=== PATIENT | female | born 1980 | race Caucasian/White ===

== ENCOUNTER 2016-11-28 10:33 | Emergency (ER) | payer OTHER, MEDICAID ==
[~2016-11-28] VITALS: Ht 154.9 cm; Wt 82.6 kg
[~2016-11-28 10:33] MED LIST: AC500T PO; ACDPT; ALPR1T PO; CEPH500C PO; CPR500T PO; DOXY100C2 PO; ENLP5T PO; FERR325C PO; HCPR10FM; HYDR1CAP2 PO; HYDR1TAB PO; LEVO500T69 PO; METR500T PO; NAPR250T34 PO; OMEP20TA2 PO; OXYC-12 PO; SULF1TAB38 PO; TRINESSA PO
--- OUTSIDE RECORDS SUMMARY | 2016-11-28 10:39 | XMS REPORT ---
Author Author Iris Chowdhury Organization [facility] Address [address] [place], [place] [address] Care Team Providers Care Sales Contract Administrator Name Role Phone Iris Chowdhury PCP Unavailable Allergies and Adverse Reactions Name Reaction Notes amoxicillin PENICILLINS Plan of Treatment Planned Activity Comments Planned Date Planned Time Plan/Goal GLYCOSYLATED HEMOGLOBIN TEST 11/26/2014 12:00 AM Medications Active Name Start Date Estimated Completion Date SIG Comments metformin 1,000 mg oral tablet take 1 tablet (1,000 mg) by oral route 2 times per day with morning and evening meals baclofen 10 mg oral tablet take 1 tablet (10 mg) by oral route 3 times per day tramadol 50 mg oral tablet take 1 tablet by oral route 3 times a day metoprolol tartrate 100 mg oral tablet take 1 tablet (100 mg) by oral route 2 times per day acetaminophen oral zolpidem 10 mg oral tablet take 1 tablet (10 mg) by oral route once daily at bedtime omeprazole 20 mg oral capsule,delayed release(DR/EC) 11/26/2014 05/25/2015 take 1 capsule by oral route 2 for 30 days Discontinued Name Start Date Discontinued Date SIG Comments cyclobenzaprine 5 mg oral tablet 11/26/2014 take 1 tablet (5 mg) by oral route 3 times per day Problem List Not available. Vital Signs Date Time BP-Sys(mm[Hg] BP-Anjali(mm[Hg]) HR(bpm) RR(rpm) Temp WT HT HC BMI BSA BMI Percentile O2 Sat(%) 11/26/2014 9:53:00 AM 120 mmHg 80 mmHg 82 bpm 98.2 F 175 lbs 62 in 32.01 kg/m2 1.86 m2 99 % Social History Name Description Comments Tobacco Former smoker Alcohol Light History of Procedures Date Ordered Description Order Status 11/26/2014 12:00 AM COMPLETE CBC W/AUTO DIFF WBC Returned 11/26/2014 12:00 AM COMPREHEN METABOLIC PANEL Returned 11/26/2014 12:00 AM LIPID PANEL Returned 11/26/2014 12:00 AM URINALYSIS AUTO W/SCOPE Returned 11/26/2014 12:00 AM ALBUMIN URINE MICROALBUMIN QUANTIATIVE Returned Results Summary Data and Description Results 11/26/2014 3:08 PM COLOR YELLOW APPEARANCE CLEAR SPEC GRAV 1.020 pH 6.0 PROTEIN 30 GLUCOSE >=1000 mg/dLKETONE TRACE BILIRUBIN NEGATIVE BLOOD TRACE-LYSED NITRITE NEGATIVE LEUK SCREEN NEGATIVE CASTS/LPF 1+ HYALINE /LPFCRYSTALS NEGATIVE MUCOUS THRDS 3+++ BACTERIA NEGATIVE EPITH CELLS 1+ SQUAMOUS / HPFTRICHOMONAS NEGATIVE YEAST NEGATIVE TRIGLYCERIDES 116.0 mg/dLCHOLESTEROL 205.0 mg/dLHDL 45.0 mg/dLLDL (CALC) 137.0 mg/dLMICROALBUMIN UR 181.0 ug/ mLGLUCOSE 314.0 mg/dLSODIUM 134.0 mmol/LPOTASSIUM 4.90 mmol/LCHLORIDE 102.0 mmol /LCO2 24.0 mmol/LBUN 9.0 mg/dLCREATININE 0.90 mg/dLSGOT/AST 14.0 IU/LSGPT/ALT 11.0 IU/LALK PHOS 79.0 IU/LTOTAL PROTEIN 7.20 g/dLALBUMIN 4.20 g/dLTOTAL BILI 0.40 mg/dLCALCIUM 9.0 mg/dLeGFR >60 mL/min/1.73mWBC 7.3 RBC 4.62 HGB 7.60 g/ dLHCT 29.10 %MCV 63.0 fLMCH 16.50 pgMCHC 26.10 g/dLRDW CV 18.40 %MPV 9.90 fLPLT 352 %NEUT 79.80 %%LYMP 14.90 %%MONO 4.70 %%EOS 0.30 %%BASO 0.30 %#NEUT 5.79 # LYMP 1.08 #MONO 0.34 #EOS 0.02 #BASO 0.02 EOS 1.0 % History Of Immunizations Not available. History of Past Illness Name Date of Onset Comments Headache Diabetes Hypertension H pylori ulcer Back Pain Nov 26 2014 10:03AM Diabetes Mellitus, Type II Nov 26 2014 10:03AM Hypertension Nov 26 2014 10:03AM Neck pain of over 3 months duration Nov 26 2014 10:03AM Payers Insurance Name Company Name Plan Name Plan Number Policy Number Policy Group Number Start Date [facility] [id number] N/A [facility] [id number] N/A History of Encounters Visit Date Visit Type Provider 11/26/2014 Office visit Iris Chowdhury APRN
--- OUTSIDE RECORDS SUMMARY | 2016-11-28 10:39 | XMS REPORT ---
Author Author Rosendo Bhatti Organization [employer] Address Unknown Phone Unavailable Care Team Providers Care Ratchet Setter Name Role Phone Rosendo Bhatti CP Unavailable Allergies, Adverse Reactions, Alerts Substance Reaction Event Type N.K.D.A. Info Not Available Non Drug Allergy Problems Problem Type Condition Code Onset Dates Condition Status Assessment Morbid (severe) obesity due to excess calories E66.01 Active Assessment Type 2 diabetes mellitus without complications E11.9 Active Assessment Contracture of muscle, multiple sites M62.49 Active Assessment Segmental and somatic dysfunction of rib cage M99.08 Active Problem Cutaneous abscess of buttock L02.31 Active Assessment Segmental and somatic dysfunction of thoracic region M99.02 Active Problem Essential (primary) hypertension I10 Active Assessment Pain in left shoulder M25.512 Active Problem Type 2 diabetes mellitus with hyperglycemia E11.65 Active Problem Segmental and somatic dysfunction of thoracic region M99.02 Active Problem Metabolic syndrome E88.81 Active Problem Esophagitis, unspecified K20.9 Active Problem Type 2 diabetes mellitus without complications E11.9 Active Assessment Metabolic syndrome E88.81 Active Assessment Essential (primary) hypertension I10 Active Problem Acute tonsillitis, unspecified J03.90 Active Assessment Esophagitis, unspecified K20.9 Active Problem Contracture of muscle, multiple sites M62.49 Active Problem Pain in left shoulder M25.512 Active Problem Morbid (severe) obesity due to excess calories E66.01 Active Problem Segmental and somatic dysfunction of rib cage M99.08 Active Problem Pure hypercholesterolemia E78.0 Active Problem Methicillin resistant Staphylococcus aureus infection, unspecified site A49.02 Active Assessment Acute tonsillitis, unspecified J03.90 Active Problem Other fatigue R53.83 Active Problem Gastro-esophageal reflux disease with esophagitis K21.0 Active Problem Cellulitis of buttock L03.317 Active Problem Anemia, unspecified D64.9 Active Problem Anemia in other chronic diseases classified elsewhere D63.8 Active Medications Medication Code System Code Instructions Start Date End Date Status Dosage Metoprolol Tartrate [facility] NAMED [facility] [address]-34 100 MG Orally Twice a day 1 tablet Aspirin FORMERLY NAMED [facility] [address]-07 81 MG Orally Once a day 1 tablet Baclofen FORMERLY NAMED [facility] [address]-42 10 MG Orally Three times a day 1 tablet with food or milk GlipiZIDE FORMERLY NAMED [facility] [address]-26 5 MG Orally Once a day 1 tablet Iron FORMERLY NAMED [facility] [address]-42 240 (27 Fe) MG Orally not defined Omeprazole FORMER[facility] NAMED [facility] [address]-29 20 MG Orally Once a day 2 capsules Cipro FORMER[facility] NAMED [facility] [address]-64 500 MG Orally Twice a day 1 tablet Procedures Procedure Coding System Code Date TOBACCO NON-USER CPT-4 G8457 July 07, 2015 PRESCRIPTION BY E-PRESCRIB S CPT-4 G8443 July 07, 2015 VAISHALI/ARB THXPY RX'D CPT-4 G8473 July 07, 2015 CLIN DEPRESSION SCREEN NOT D CPT-4 G8432 July 07, 2015 DOC MEDS VERIFIED W/PT OR RE CPT-4 G8427 July 07, 2015 PAIN ASSESSMENT DOCUMENT CPT-4 G8440 July 07, 2015 TX PLAN DEVELOP & DOCUMENT CPT-4 G8437 July 07, 2015 BP SYS>=130 AND/OR KNIGHT >=80 CPT-4 G8477 July 07, 2015 DOC PAIN ASSESS NO DOC F/U PLAN RNS CPT-4 G8509 July 07, 2015 OMT 1-2 BODY REGIONS CPT-4 87967 July 07, 2015 AT LEAST 1 RX TRANSMIT ERX SYS CPT-4 G8553 July 07, 2015 MOST RECENT SYSTOLIC BP >=140 MM HG CPT-4 G8589 July 07, 2015 BMI>=30OR<22 LEONARDO NO FOLLOWUP CPT-4 G8419 July 07, 2015 MOST RECENT DIASTOLIC BP >=90 MM HG CPT-4 G8591 July 07, 2015 ASPIRIN/OTH ANTITHROMBOTIC TX USED CPT-4 G8598 July 07, 2015 Office Visit, Est Pt., Level 4 CPT-4 24715 July 07, 2015 Vital Signs Date/Time: July 07, 2015 BMI 34.46 Index Pain Scale 8/10 1-10 Weight 182.4 lbs Height 61 in Respiratory Rate 18 /min Temperature 96.7 F Cardiac Monitoring Heart Rate 114 /min Oximetry 98 % Blood Pressure Diastolic 94 mm Hg Blood Pressure Systolic 169 mm Hg Results No Known Results Summary Purpose [employer] Submission
--- OUTSIDE RECORDS SUMMARY | 2016-11-28 10:39 | XMS REPORT ---
Author Author Iris Chowdhury Organization [facility] Address [address] [place], [place] [address] Care Team Providers Care Camouflage Specialist Name Role Phone Iris Chowdhury PCP Unavailable [...] by oral route 2 for 30 days ferrous sulfate 325 mg (65 mg iron) oral tablet 11/27/2014 12/27/2014 take 1 tablet by oral route 3 times a day for 30 days Discontinued Name Start Date [...] Comments Headache Diabetes Hypertension H pylori ulcer Anemia, Iron Deficiency, Secondary To Blood Loss, Chronic 11/27/14 Admitted to [facility] per Dr Fuentes for blood transfusion for heavy periods and severe anemia hgb 7.6 on 11/26/14 Back Pain Nov 26 2014 10:03AM Diabetes Mellitus, Type II Nov 26 2014 10:03AM Hypertension Nov 26 2014 10:03AM Neck pain of over 3 months duration Nov 26 2014 10:03AM Payers Insurance Name Company Name Plan Name Plan Number Policy Number Policy Group Number Start Date [facility] [id number] N/A [facility] [id number] N/A History of Encounters Visit Date Visit Type Provider 11/26/2014 Office visit Iris Chowdhury APRN
--- OUTSIDE RECORDS SUMMARY | 2016-11-28 10:39 | XMS REPORT ---
Author Author Rosendo Bhatti Organization [employer] Address Unknown Phone Unavailable Care Team Providers Care Claim Investigator Name Role Phone Rosendo Bhatti CP Unavailable Allergies, Adverse Reactions, Alerts Substance Reaction Event Type N.K.D.A. Info Not Available Non Drug Allergy Problems Problem Type Condition Code Onset Dates Condition Status Problem Type 2 diabetes mellitus with hyperglycemia E11.65 Active Problem Segmental and somatic dysfunction of thoracic region M99.02 Active Problem Metabolic syndrome E88.81 Active Problem Esophagitis, unspecified K20.9 Active Assessment Segmental and somatic dysfunction of rib cage M99.08 Active Problem Type 2 diabetes mellitus without complications E11.9 Active Assessment Contracture of muscle, multiple sites M62.49 Active Problem Acute tonsillitis, unspecified J03.90 Active Problem Contracture of muscle, multiple sites M62.49 Active Problem Pain in left shoulder M25.512 Active Problem Morbid (severe) obesity due to excess calories E66.01 Active Problem Segmental and somatic dysfunction of rib cage M99.08 Active Problem Pure hypercholesterolemia E78.0 Active Problem Methicillin resistant Staphylococcus aureus infection, unspecified site A49.02 Active Assessment Pain in left shoulder M25.512 Active Problem Other fatigue R53.83 Active Problem Gastro-esophageal reflux disease with esophagitis K21.0 Active Problem Cellulitis of buttock L03.317 Active Problem Anemia, unspecified D64.9 Active Problem Cutaneous abscess of buttock L02.31 Active Problem Anemia in other chronic diseases classified elsewhere D63.8 Active Problem Essential (primary) hypertension I10 Active Medications Medication Code System Code Instructions Start Date End Date Status Dosage Omeprazole [facility] [address]-82 20 MG Orally Once a day 2 capsules Metoprolol Tartrate [facility] [address]-63 100 MG Orally Twice a day 1 tablet Baclofen [facility] [address]-17 10 MG Orally Three times a day 1 tablet with food or milk GlipiZIDE [facility] [address]-16 5 MG Orally Once a day 1 tablet Tramadol HCl [facility] [address]-17 50 MG Orally Twice a day (120) 2 tablets as needed Cipro [facility] [address]-29 500 MG Orally Twice a day 1 tablet Aspirin [facility] [address]-41 81 MG Orally Once a day 1 tablet Iron [facility] [address]-97 240 (27 Fe) MG Orally not defined Procedures Procedure Coding System Code Date SOME PRESCRIB HANDWRITTEN OR CPT-4 G8446 July 09, 2015 PRESCRIPTION BY E-PRESCRIB S CPT-4 G8443 July 09, 2015 TOBACCO NON-USER CPT-4 G8457 July 09, 2015 CLIN DEPRESSION SCREEN NOT D CPT-4 G8432 July 09, 2015 DOC MEDS VERIFIED W/PT OR RE CPT-4 G8427 July 09, 2015 PAIN ASSESSMENT DOCUMENT CPT-4 G8440 July 09, 2015 TX PLAN DEVELOP & DOCUMENT CPT-4 G8437 July 09, 2015 BP SYS>=130 AND/OR KNIGHT >=80 CPT-4 G8477 July 09, 2015 PAIN SEV QUANTIFIED PAIN PRES CPT-4 G8512 July 09, 2015 OMT 1-2 BODY REGIONS CPT-4 59634 July 09, 2015 AT LEAST 1 RX TRANSMIT ERX SYS CPT-4 G8553 July 09, 2015 MOST RECENT SYSTOLIC BP >=140 MM HG CPT-4 G8589 July 09, 2015 BMI>=30OR<22 LEONARDO NO FOLLOWUP CPT-4 G8419 July 09, 2015 MOST RECENT DIASTOLIC BP <90 MM HG CPT-4 G8590 July 09, 2015 Office Visit, Est Pt., Level 4 CPT-4 08191 July 09, 2015 Vital Signs Date/Time: July 09, 2015 BMI 34.69 Index Pain Scale 0/10 1-10 Weight 183.6 lbs Height 61 in Respiratory Rate 20 /min Temperature 97.1 F Cardiac Monitoring Heart Rate 110 /min Oximetry 97 % Blood Pressure Diastolic 87 mm Hg Blood Pressure Systolic 148 mm Hg Results No Known Results Summary Purpose [employer] Submission
--- OUTSIDE RECORDS SUMMARY | 2016-11-28 10:39 | XMS REPORT ---
Author Author Iris Chowdhury Organization [facility] Address [address] [place], [place] [address] Care Team Providers Care Incident Response Manager Name Role Phone Iris Chowdhury PCP Unavailable Allergies and Adverse Reactions Name Reaction Notes amoxicillin PENICILLINS Plan of Treatment Planned Activity Comments Planned Date Planned Time Plan/Goal COMPLETE CBC W/AUTO DIFF WBC 11/26/2014 12:00 AM COMPREHEN METABOLIC PANEL 11/26/2014 12:00 AM LIPID PANEL 11/26/2014 12:00 AM GLYCOSYLATED HEMOGLOBIN TEST 11/26/2014 12:00 AM URINALYSIS AUTO W/SCOPE 11/26/2014 12:00 AM MICROALBUMIN QUANTITATIVE 11/26/2014 12:00 AM Medications Active Name Start [...] Former smoker Alcohol Light History of Procedures Not available. Results Summary Not available. History Of Immunizations Not available. History of [...] Policy Number Policy Group Number Start Date [facility] [id number] N/A [facility] [id number] N/A History of Encounters Visit Date Visit Type Provider 11/26/2014 Office visit Iris Chowdhury APRN
--- OUTSIDE RECORDS SUMMARY | 2016-11-28 10:39 | XMS REPORT ---
Author Author LATA THOMAS Organization [facility] Address [address] [place] [address] Care Team Providers Care Auxiliary Operator Name Role Phone LATA THOMAS Unavailable PROBLEMS Type Condition ICD9-CM Code WSI12-MW Code Onset Dates Condition Status SNOMED Code Problem Acute gastritis without mention of hemorrhage 535.00 Active 98562982 Problem Unspecified viral infection, in conditions classified elsewhere and of unspecified site 079.99 Active 32159711 Problem Diabetes mellitus without mention of complication, type II or unspecified type, uncontrolled 250.02 Active 510040250 Problem Iron deficiency anemia, unspecified iron deficiency anemia type D50.9 Active 03990103 Problem Encounter for long-term (current) use of other medications V58.69 Active 751333768 Problem Unspecified constipation 564.00 Active 74896350 Problem Periapical abscess without sinus 522.5 Active 956267408 Problem Essential hypertension I10 Active 31555602 Problem GERD with esophagitis K21.0 Active 996242298 Problem Chronic pain disorder G89.4 Active 024997362 Problem Heme positive stool R19.5 Active 41637629 Problem Type 2 diabetes mellitus without complication, without long-term current use of insulin E11.9 Active 965310128 Problem Other chronic pain G89.29 Active 53991468 ALLERGIES Substance Reaction Event Type Date Status Penicillin V Potassium Unknown Drug Allergy Mar, Active Metformin HCl diarrhea Drug Allergy Mar, Active Fluticasone Propionate epistaxis Drug Allergy Mar, Active Amoxicillin Unknown Drug Allergy Mar, Active SOCIAL HISTORY No smoking Hx information available PLAN OF CARE VITAL SIGNS MEDICATIONS Medication Instructions Dosage Frequency Start Date End Date Duration Status GlipiZIDE 5 MG Orally Once a day 1 tablet 24h Active Metoprolol Tartrate 100 MG Orally Twice a day 1 tablet with food 12h Active Tramadol HCl 50 mg Orally Once a day 1 tablet as needed 24h Active Baclofen 10 MG Orally Three times a day 1 tablet with food or milk 8h Active RESULTS No Results PROCEDURES No Known procedures IMMUNIZATIONS No Known Immunizations
--- OUTSIDE RECORDS SUMMARY | 2016-11-28 10:40 | XMS REPORT ---
Author Author Iris Chowdhury Organization [facility] Address [address] [place], [place] [address] Care Team Providers Care Audit Manager Name Role Phone Iris Chowdhury PCP [...] To Blood Loss, Chronic 11/27/14 Admitted to [facility] per Dr Fuentes for blood transfusion for heavy periods and severe anemia hgb 7.6 on 11/26/14 Back Pain Nov 26 2014 10:03AM Diabetes Mellitus, Type II Nov 26 2014 10:03AM Hypertension Nov 26 2014 10:03AM Neck pain of over 3 months duration Nov 26 2014 10:03AM Payers Insurance Name Company Name Plan Name Plan Number Policy Number Policy Group Number Start Date [facility] [id number] N/A [facility] [id number] N/A History of Encounters Visit Date Visit Type Provider 11/26/2014 Office visit Iris Chowdhury APRN
--- OUTSIDE RECORDS SUMMARY | 2016-11-28 10:40 | XMS REPORT ---
Author Author Iris Chowdhury Organization [facility] Address [address] [place], [place] [address] Care Team Providers Care On Air Announcer Name Role Phone Iris Chowdhury PCP Unavailable Allergies and Adverse Reactions Name Reaction Notes amoxicillin PENICILLINS Plan of Treatment Planned Activity Comments Planned Date Planned Time Plan/Goal COMPLETE CBC W/AUTO DIFF WBC 12/02/2014 12:00 AM IRON BINDING TEST 12/02/2014 12:00 AM ASSAY OF FERRITIN 12/02/2014 12:00 AM ASSAY OF IRON 12/02/2014 12:00 AM VIT D 1 25-DIHYDROXY 12/02/2014 12:00 AM Medications Active Name Start Date Estimated Completion Date SIG Comments metformin 1,000 mg oral tablet take 1 tablet (1,000 mg) by oral route 2 times per day with morning and evening meals metoprolol tartrate 100 mg oral tablet take [...] 3 times a day for 30 days glipizide 5 mg oral tablet 12/02/2014 05/31/2015 take 1 tablet (5 mg) by oral route once daily before a meal nystatin 100,000 unit/mL oral suspension 12/02/2014 12/16/2014 take 5 milliliters (500,000 unit) by oral route 4 times per day for 7 days citalopram 20 mg oral tablet 12/02/2014 03/02/2015 take 1 tablet (20 mg) by oral route once daily baclofen 10 mg oral tablet 12/02/2014 03/02/2015 take 1 tablet (10 mg) by oral route 3 for 90 days tramadol 50 mg oral tablet 12/02/2014 01/31/2015 take 2 tablets by oral route 2 times a day for 30 days Discontinued Name Start Date Discontinued Date SIG Comments cyclobenzaprine 5 mg oral tablet 11/26/2014 take 1 tablet (5 mg) by oral route 3 times per day Problem List Not available. Vital Signs Date Time BP-Sys(mm[Hg] BP-Anjali(mm[Hg]) HR(bpm) RR(rpm) Temp WT HT HC BMI BSA BMI Percentile O2 Sat(%) 12/02/2014 9:19:00 AM 120 mmHg 80 mmHg 86 bpm 98.5 F 178.5 lbs 62 in 32.65 kg/m2 1.88 m2 99 % 11/26/2014 9:53:00 AM 120 mmHg 80 mmHg 82 bpm 98.2 F 175 lbs 62 in 32.0076 kg/m 1.8634 m 99 % Social History Name Description Comments Tobacco Former smoker Alcohol Light History of Procedures Date Ordered Description Order Status 11/26/2014 12:00 AM COMPLETE CBC W/AUTO DIFF WBC Returned 11/26/2014 12:00 AM COMPREHEN METABOLIC PANEL Returned 11/26/2014 12:00 AM LIPID PANEL Returned 11/26/2014 12:00 AM GLYCOSYLATED HEMOGLOBIN TEST Returned 11/26/2014 12:00 AM URINALYSIS AUTO W/SCOPE [...] 0.34 #EOS 0.02 #BASO 0.02 EOS 1.0 %Hemoglobin A1c 8.80 %Estim. Avg Glu (eAG) 206 mg/dL History Of Immunizations Not available. History of Past Illness Name Date of Onset Comments Headache Diabetes Hypertension H pylori ulcer Anemia, Iron Deficiency, Secondary To Blood Loss, Chronic 11/27/14 Admitted to [facility] per Dr Fuentes for blood transfusion for heavy periods and severe anemia hgb 7.6 on 11/26/14 Back Pain Nov 26 2014 10:03AM Diabetes Mellitus, Type II Nov 26 2014 10:03AM Hypertension Nov 26 2014 10:03AM Neck pain of over 3 months duration Nov 26 2014 10:03AM Diabetes Mellitus, Type II, Uncontrolled Dec 02 2014 9:23AM Chronic back pain greater than 3 months duration Dec 02 2014 9:23AM Anemia due to chronic blood loss Dec 02 2014 9:23AM Thrush, oral Dec 02 2014 9:23AM Payers Insurance Name Company Name Plan Name Plan Number Policy Number Policy Group Number Start Date [facility] [id number] N/A [facility] [id number] N/A History of Encounters Visit Date Visit Type Provider 12/02/2014 Office visit Iris Chowdhury APRN 11/26/2014 Office visit Iris Chowdhury APRN
--- OUTSIDE RECORDS SUMMARY | 2016-11-28 10:40 | XMS REPORT ---
Author Author Rosendo Bhatti [facility] eClinicalWorks Address Unknown Phone Unavailable Care Team Providers Care [employer] Developer Name Role Phone Rosendo Bhatti CP Unavailable Allergies, Adverse Reactions, Alerts Substance Reaction Event Type N.K.D.A. Info Not Available Non Drug Allergy Problems Problem Type Condition Code Onset Dates Condition Status Assessment Morbid (severe) obesity due to excess calories E66.01 Active Problem Type 2 diabetes mellitus with hyperglycemia E11.65 Active Assessment Type 2 diabetes mellitus with hyperglycemia E11.65 Active Problem Metabolic syndrome E88.81 Active Assessment Metabolic syndrome E88.81 Active Problem Segmental and somatic dysfunction of thoracic region M99.02 Active Problem Contracture of muscle, multiple sites M62.49 Active Problem Pain in left shoulder M25.512 Active Problem Candidal stomatitis B37.0 Active Problem Acute tonsillitis, unspecified J03.90 Active Problem Other fatigue R53.83 Active Assessment Low back pain M54.5 Active Problem Low back pain M54.5 Active Assessment Essential (primary) hypertension I10 Active Problem Morbid (severe) obesity due to excess calories E66.01 Active Problem Segmental and somatic dysfunction of rib cage M99.08 Active Problem Esophagitis, unspecified K20.9 Active Problem Type 2 diabetes mellitus without complications E11.9 Active Problem Anemia, unspecified D64.9 Active Problem Anemia in other chronic diseases classified elsewhere D63.8 Active Problem Pure hypercholesterolemia E78.0 Active Problem Methicillin resistant Staphylococcus aureus infection, unspecified site A49.02 Active Problem Cutaneous abscess of buttock L02.31 Active Problem Essential (primary) hypertension I10 Active Problem Gastro-esophageal reflux disease with esophagitis K21.0 Active Problem Cellulitis of buttock L03.317 Active Medications Medication Code System Code Instructions Start Date End Date Status Dosage Omeprazole [facility] [address]-05 20 MG Orally Once a day 2 capsules Aspirin [facility] [address]-70 81 MG Orally Once a day 1 tablet Lisinopril [facility] [address]-24 20 MG Orally Once a day 1 tablet Tramadol HCl [facility] [address]-91 50 MG Orally Twice a day (120) 2 tablets as needed Diflucan [facility] [address]-38 200 MG Orally Once a day 1 tablet Iron [facility] [address]-00 240 (27 Fe) MG Orally not defined Metformin HCl [facility] [address]-73 1000 MG Orally Twice a day 1 tablet with meals Metoprolol Tartrate [facility] [address]-65 100 MG Orally Twice a day 1 tablet Baclofen [facility] [address]-09 10 MG Orally Three times a day 1 tablet with food or milk Metformin HCl [facility] [address]-26 1000 MG Orally Twice a day 1 tablet with meals GlipiZIDE [facility] [address]-80 5 MG Orally Once a day 1 tablet Procedures Procedure Coding System Code Date TOBACCO NON-USER CPT-4 G8457 September 08, 2015 SOME PRESCRIB HANDWRITTEN OR CPT-4 G8446 September 08, 2015 BP SYS>=130 AND/OR KNIGHT >=80 CPT-4 G8477 September 08, 2015 TX PLAN DEVELOP & DOCUMENT CPT-4 G8437 September 08, 2015 CLIN DEPRESSION SCREEN NOT D CPT-4 G8432 September 08, 2015 PRESCRIPTION BY E-PRESCRIB S CPT-4 G8443 September 08, 2015 PAIN ASSESSMENT DOCUMENT CPT-4 G8440 September 08, 2015 PAIN SEV QUANTIFIED PAIN PRES CPT-4 G8512 September 08, 2015 AT LEAST 1 RX TRANSMIT ERX SYS CPT-4 G8553 September 08, 2015 BMI>=30OR<22 LEONARDO NO FOLLOWUP CPT-4 G8419 September 08, 2015 MOST RECENT SYSTOLIC BP >=140 MM HG CPT-4 G8589 September 08, 2015 MOST RECENT DIASTOLIC BP <90 MM HG CPT-4 G8590 September 08, 2015 DOC MEDS VERIFIED W/PT OR RE CPT-4 G8427 September 08, 2015 ASPIRIN/OTH ANTITHROMBOTIC TX USED CPT-4 G8598 September 08, 2015 Office Visit, Est Pt., Level 3 CPT-4 21110 September 08, 2015 Vital Signs Date/Time: September 08, 2015 BMI 35.22 Index Pain Scale 3/10 1-10 Weight 186.4 lbs Height 61 in Respiratory Rate 18 /min Temperature 97.5 F Cardiac Monitoring Heart Rate 106 /min Oximetry 93 % Blood Pressure Diastolic 81 mm Hg Blood Pressure Systolic 148 mm Hg Results No Known Results Summary Purpose eClinicalWorks Submission
--- OUTSIDE RECORDS SUMMARY | 2016-11-28 10:40 | XMS REPORT ---
Author Author Iris Chowdhury Organization [facility] Address [address] [place], [place] [id number] Care Team Providers Care Ball Thread Machine Tender Name Role Phone Iris Chowdhury PCP Unavailable Allergies and Adverse Reactions Name Reaction Notes amoxicillin PENICILLINS Plan of Treatment Not available. Medications Active Name Start Date Estimated Completion [...] To Blood Loss, Chronic 11/27/14 Admitted to [facility] per Dr Fuentes for blood transfusion for heavy periods and severe anemia hgb 7.6 on 11/26/14 Back Pain Nov 26 2014 10:03AM Diabetes Mellitus, Type II Nov 26 2014 10:03AM Hypertension Nov 26 2014 10:03AM Neck pain of over 3 months duration Nov 26 2014 10:03AM Payers Insurance Name Company Name Plan Name Plan Number Policy Number Policy Group Number Start Date [facility] [id number] N/A [facility] [id number] N/A History of Encounters Visit Date Visit Type Provider 11/26/2014 Office visit Iris Chowdhury APRN
--- OUTSIDE RECORDS SUMMARY | 2016-11-28 10:40 | XMS REPORT ---
Author Author Rosendo Bhatti Organization eClinicalWorks Address Unknown Phone Unavailable Care Team Providers Care Custodian Supervisor Name Role Phone Rosendo Bhatti CP Unavailable Allergies, Adverse Reactions, Alerts Substance Reaction Event Type N.K.D.A. Info Not Available Non Drug Allergy Problems Problem Type Condition Code Onset Dates Condition Status Assessment Morbid (severe) obesity due to excess calories E66.01 Active Assessment Candidal stomatitis B37.0 Active Problem Essential (primary) hypertension I10 Active Assessment Type 2 diabetes mellitus without complications E11.9 Active Problem Type 2 diabetes mellitus with hyperglycemia E11.65 Active Assessment Metabolic syndrome E88.81 Active Problem Metabolic syndrome E88.81 Active Problem Pain in left shoulder M25.512 Active Problem Segmental and somatic dysfunction of thoracic region M99.02 Active Problem Acute tonsillitis, unspecified J03.90 Active Problem Esophagitis, unspecified K20.9 Active Assessment Pain in left shoulder M25.512 Active Assessment Contracture of muscle, multiple sites M62.49 Active Problem Candidal stomatitis B37.0 Active Assessment Essential (primary) hypertension I10 Active Problem Segmental and somatic dysfunction of rib cage M99.08 Active Problem Contracture of muscle, multiple sites M62.49 Active Problem Type 2 diabetes mellitus without complications E11.9 Active Problem Morbid (severe) obesity due to excess calories E66.01 Active Problem Methicillin resistant Staphylococcus aureus infection, unspecified site A49.02 Active Problem Anemia, unspecified D64.9 Active Problem Other fatigue R53.83 Active Problem Pure hypercholesterolemia E78.0 Active Problem Cellulitis of buttock L03.317 Active Problem Cutaneous abscess of buttock L02.31 Active Problem Anemia in other chronic diseases classified elsewhere D63.8 Active Problem Gastro-esophageal reflux disease with esophagitis K21.0 Active Medications Medication Code System Code Instructions Start Date End Date Status Dosage Metoprolol Tartrate [facility] [address]-08 100 MG Orally Twice a day 1 tablet Omeprazole [facility] [address]-08 20 MG Orally Once a day 2 capsules Metformin HCl [facility] [address]-44 1000 MG Orally Twice a day 1 tablet with meals GlipiZIDE [facility] [address]-72 5 MG Orally Once a day 1 tablet Aspirin [facility] [address]-86 81 MG Orally Once a day 1 tablet Diflucan [facility] [address]-33 200 MG Orally Once a day 1 tablet Metformin HCl [facility] [address]-36 1000 MG Orally Twice a day 1 tablet with meals Baclofen [facility] [address]-22 10 MG Orally Three times a day 1 tablet with food or milk Tramadol HCl [facility] [address]-12 50 MG Orally Twice a day (120) 2 tablets as needed Iron [facility] [address]-14 240 (27 Fe) MG Orally not defined Procedures Procedure Coding System Code Date BP SYS>=130 AND/OR KNIGHT >=80 CPT-4 G8477 July 14, 2015 TOBACCO NON-USER CPT-4 G8457 July 14, 2015 DOC PAIN ASSESS NO DOC F/U PLAN RNS CPT-4 G8509 July 14, 2015 TX PLAN DEVELOP & DOCUMENT CPT-4 G8437 July 14, 2015 CLIN DEPRESSION SCREEN NOT D CPT-4 G8432 July 14, 2015 PRESCRIPTION BY E-PRESCRIB S CPT-4 G8443 July 14, 2015 PAIN ASSESSMENT DOCUMENT CPT-4 G8440 July 14, 2015 AT LEAST 1 RX TRANSMIT ERX SYS CPT-4 G8553 July 14, 2015 MOST RECENT SYSTOLIC BP >=140 MM HG CPT-4 G8589 July 14, 2015 BMI>=30OR<22 LEONARDO NO FOLLOWUP CPT-4 G8419 July 14, 2015 MOST RECENT DIASTOLIC BP <90 MM HG CPT-4 G8590 July 14, 2015 DOC MEDS VERIFIED W/PT OR RE CPT-4 G8427 July 14, 2015 Office Visit, Est Pt., Level 3 CPT-4 16886 July 14, 2015 Vital Signs Date/Time: July 14, 2015 BMI 34.35 Index Pain Scale 5/10 1-10 Weight 181.8 lbs Height 61 in Respiratory Rate 20 /min Temperature 98.1 F Cardiac Monitoring Heart Rate 103 /min Oximetry 91 % Blood Pressure Diastolic 86 mm Hg Blood Pressure Systolic 148 mm Hg Results No Known Results Summary Purpose eClinicalWorks Submission
--- OUTSIDE RECORDS SUMMARY | 2016-11-28 10:41 | XMS REPORT ---
Author Author Rosendo Bhatti Organization eClinicalWorks Address Unknown Phone Unavailable Care Team Providers Care Measurement Operator Name Role Phone Rosendo Bhatti CP Unavailable Allergies, Adverse Reactions, Alerts Substance Reaction Event Type N.K.D.A. Info Not Available Non Drug Allergy Problems Problem Type Condition Code Onset Dates Condition Status Problem Other fatigue R53.83 Active Problem Methicillin resistant Staphylococcus aureus infection, unspecified site A49.02 Active Problem Pure hypercholesterolemia E78.0 Active Assessment Methicillin resistant Staphylococcus aureus infection, unspecified site A49.02 Active Assessment Cellulitis of buttock L03.317 Active Problem Essential (primary) hypertension I10 Active Problem Cutaneous abscess of buttock L02.31 Active Problem Type 2 diabetes mellitus with hyperglycemia E11.65 Active Problem Anemia in other chronic diseases classified elsewhere D63.8 Active Problem Anemia, unspecified D64.9 Active Problem Cellulitis of buttock L03.317 Active Problem Gastro-esophageal reflux disease with esophagitis K21.0 Active Medications Medication Code System Code Instructions Start Date End Date Status Dosage Metoprolol Tartrate [facility] [address]-42 100 MG Orally Twice a day 1 tablet GlipiZIDE [facility] [address]-68 5 MG Orally Once a day 1 tablet Iron [facility] [address]-38 240 (27 Fe) MG Orally not defined Baclofen [facility] [address]-35 10 MG Orally Three times a day 1 tablet with food or milk Aspirin [facility] [address]-81 81 MG Orally Once a day 1 tablet Omeprazole [facility] [address]-28 20 MG Orally Once a day 2 capsules Bactrim DS [facility] [address]-84 800-160 MG Orally Twice a day X 10 then 1/2 a pill X 10 days 1 tablet Procedures Procedure Coding System Code Date TOBACCO NON-USER CPT-4 G8457 Mar 19, 2015 PRESCRIPTION BY E-PRESCRIB S CPT-4 G8443 Mar 19, 2015 BP SYS <130 AND KNIGHT <80 CPT-4 G8476 Mar 19, 2015 CLIN DEPRESSION SCREEN DOC CPT-4 G8431 Mar 19, 2015 DOC MEDS VERIFIED W/PT OR RE CPT-4 G8427 Mar 19, 2015 PAIN ASSESSMENT DOCUMENT CPT-4 G8440 Mar 19, 2015 TX PLAN DEVELOP & DOCUMENT CPT-4 G8437 Mar 19, 2015 DOC PAIN ASSESS NO DOC F/U PLAN RNS CPT-4 G8509 Mar 19, 2015 AT LEAST 1 RX TRANSMIT ERX SYS CPT-4 G8553 Mar 19, 2015 PT RECEIV INFLUENZA VACC CPT-4 G8108 Mar 19, 2015 MOST RECENT SYSTOLIC BP >=140 MM HG CPT-4 G8589 Mar 19, 2015 MOST RECENT DIASTOLIC BP >=90 MM HG CPT-4 G8591 Mar 19, 2015 BMI>=30OR<22 LEONARDO NO FOLLOWUP CPT-4 G8419 Mar 19, 2015 Office Visit, New Pt., Level 2 CPT-4 45312 Mar 19, 2015 Vital Signs Date/Time: Mar 19, 2015 BMI 35.03 Index Weight 185.4 lbs Height 61 in Respiratory Rate 20 /min Temperature 96.5 F Cardiac Monitoring Heart Rate 114 /min Oximetry 98 % Blood Pressure Diastolic 104 mm Hg Blood Pressure Systolic 192 mm Hg Results No Known Results Summary Purpose eClinicalWorks Submission
[2016-11-28 12:29] LABS: BASOPHILS % (AUTO) 0 % (0-10); EOSINOPHILS % (AUTO) 0 % (0-10); LYMPHOCYTES # (AUTO) 1.2 X 10^3 (1.0-4.0); LYMPHOCYTES % (AUTO) 7 % (12-44); MEAN CORPUSCULAR HEMOGLOBIN 24 PG (25-34); MEAN CORPUSCULAR HGB CONC 32 G/DL (32-36); MEAN CORPUSCULAR VOLUME 76 FL (80-99); MEAN PLATELET VOLUME 9.9 FL (7.4-10.4); MONOCYTES # (AUTO) 1.2 X 10^3 (0.0-1.0); MONOCYTES % (AUTO) 7 % (0-12); NEUTROPHILS # (AUTO) 15.2 X 10^3 (1.8-7.8); NEUTROPHILS % (AUTO) 86 % (42-75); PLATELET COUNT 257 10^3/uL (130-400); RED BLOOD COUNT 5.47 10^6/uL (4.35-5.85); RED CELL DISTRIBUTION WIDTH 18.1 % (10.0-14.5); WHITE BLOOD COUNT 17.6 10^3/uL (4.3-11.0)
[2016-11-28 12:30] LABS: BILIRUBIN,URINE NEGATIVE (NEGATIVE); KETONES,URINE 2+ (NEGATIVE); LEUKOCYTE ESTERASE ,URINE 2+ (NEGATIVE); NITRITE,URINE POSITIVE (NEGATIVE); PH,URINE 5 (5-9); PROTEIN,URINE 2+ (NEGATIVE); UROBILINOGEN,URINE NORMAL (NORMAL)
[2016-11-28] MEDS ORDERED: NS 100 ML (IVPB) BAG IV ONE (12:30)
[2016-11-28] MEDS ORDERED: IOHEXOL 350 MG/ML 100 ML (OMNIPAQUE 350) VIAL IV ONE (12:30)
[2016-11-28 12:50] LABS: ALANINE AMINOTRANSFERASE 20 U/L (0-55); ANION GAP 14 MMOL/L (5-14); ASPARTATE AMINO TRANSFERASE 13 U/L (5-34); BILIRUBIN,TOTAL 0.3 MG/DL (0.1-1.0); BLOOD UREA NITROGEN 14 MG/DL (7-18); BUN/CREATININE RATIO 14; CALCIUM 9.6 MG/DL (8.5-10.1); CARBON DIOXIDE 22 MMOL/L (21-32); CHLORIDE 100 MMOL/L (98-107); CREATININE SERUM 0.98 MG/DL (0.60-1.30); GFR ESTIMATED > 60; GLUCOSE 187 MG/DL (70-105); POTASSIUM 3.8 MMOL/L (3.6-5.0); SODIUM 136 MMOL/L (135-145)
[2016-11-28 12:56] LABS: EOSINOPHILS % (MANUAL) 1 %; LYMPHOCYTES % (MANUAL) 12 %; NEUTROPHILS % (MANUAL) 86 %
--- NOTE | 2016-11-28 13:20 | Diagnostic Imaging Report ---
PROCEDURE: CT pelvis with contrast. TECHNIQUE: Oral and intravenous contrast were administered with pelvic CT performed. INDICATION: Abscess left buttock. Constipation. COMPARISON: CT pelvis with IV contrast 07/23/2011. FINDINGS: Enhancing thickwalled fluid collection in the left perineal region measuring approximately 4.2 x 2.9 x 5.0 cm. This may communicate with the rectum. This is in the same location as on the prior exam. Bilateral tubal ligation. The visualized pelvic contents are otherwise unremarkable. No acute osseous findings. IMPRESSION: Thickwalled fluid collection suspicious for abscess in the perineal region. This may communicate with the rectum. Dictated by: Dictated on workstation # [id number]
[2016-11-28] MEDS ORDERED: LIDOCAINE 2% 20 ML (XYLOCAINE) VIAL ONE (13:45)
[2016-11-28] MEDS ORDERED: NAPR500T3 PO (14:40)
[2016-11-28] MEDS ORDERED: SULF1TAB35 PO (14:40)
[2016-11-28] MEDS ORDERED: METR500T PO (14:40)
--- NOTE | 2016-11-28 14:41 | ED Integumentary General ---
General Chief Complaint: Skin/Wound Problems Stated Complaint: UNABLE TO URINATE/PAIN Nursing Triage Note: PT REPORTS ABSCESS TO L PERIRECTAL AREA. SHE STATES SHE HAS HAD TO HAVE IT I&D PREVIOUSLY. SHE REPORTS WORSENING PAIN AND STATES SHE IS UNABLE TO HAVE A BM R/ T ABSCESS. Allergies and Home Medications Allergies Coded Allergies: Amoxicillin (Verified Allergy, Mild, 07/23/11) Home Medications Alprazolam 1 Mg Tablet, 1 MG PO Q12H PRN, (Reported) Enalapril Maleate 5 Mg Tab, 5 MG PO DAILY, (Reported) Omeprazole 20 Mg Tablet.dr, 20 MG PO DAILY PRN, (Reported) Past Aaowyrw-Pujdhs-Ctnvcw Hx Patient Social History Alcohol Use: Denies Use Recreational Drug Use: No Smoking Status: Former Smoker Type Used: Cigarettes 2nd Hand Smoke Exposure: No Recent Foreign Travel: No Contact w/Someone Who Travel: No Recent Infectious Disease Expo: No Recent Hopitalizations: No Physical Abuse: No Sexual Abuse: No Surgeries History of Surgeries: Yes (I & D OF RECTAL ABSCESSES--MULTIPLE, WISDOM TEETH REMOVED) Respiratory History of Respiratory Disorde: No Cardiovascular History of Cardiac Disorders: Yes Neurological History of Neurological Disord: No Reproductive System Hx Reproductive Disorders: No Female Reproductive Disorders: Menstrual Problems Gastrointestinal History of Gastrointestinal Di: Yes Gastrointestinal Disorders: Gastroesophageal Reflux Musculoskeletal History of Musculoskeletal Dis: No Endocrine History of Endocrine Disorders: Yes (gestational diabetes) Cancer History of Cancer: No Psychosocial History of Psychiatric Problem: Yes Behavioral Health Disorders: Anxiety Suicide Risk Score: 0 Integumentary History of Skin or Integumenta: No (RECTAL/PERIRECTAL ABSCESSES) Blood Transfusions History of Blood Disorders: Yes Physical Exam Vital Signs Vital Sign - Last 12Hours 11/28/16 11:12 Temp 98.9 Pulse 95 Resp 16 B/P (MAP) 158/82 Pulse Ox 99 O2 Delivery Room Air Capillary Refill : Less Than 3 Seconds Progress/Results/Core Measures Results/Orders Lab Results Laboratory Tests Test 11/28/16 12:20 Range/Units White Blood Count 17.6 H 4.3-11.0 10^3/uL Red Blood Count 5.47 4.35-5.85 10^6/uL Hemoglobin 13.3 11.5-16.0 G/DL Hematocrit 41 35-52 % Mean Corpuscular Volume 76 L 80-99 FL Mean Corpuscular Hemoglobin 24 L 25-34 PG Mean Corpuscular Hemoglobin Concent 32 32-36 G/DL Red Cell Distribution Width 18.1 H 10.0-14.5 % Platelet Count 257 130-400 10^3/uL Mean Platelet Volume 9.9 7.4-10.4 FL Neutrophils (%) (Auto) 86 H 42-75 % Lymphocytes (%) (Auto) 7 L 12-44 % Monocytes (%) (Auto) 7 0-12 % Eosinophils (%) (Auto) 0 0-10 % Basophils (%) (Auto) 0 0-10 % Neutrophils # (Auto) 15.2 H 1.8-7.8 X 10^3 Lymphocytes # (Auto) 1.2 1.0-4.0 X 10^3 Monocytes # (Auto) 1.2 H 0.0-1.0 X 10^3 Eosinophils # (Auto) 0.0 0.0-0.3 10^3/uL Basophils # (Auto) 0.0 0.0-0.1 10^3/uL Neutrophils % (Manual) 86 % Lymphocytes % (Manual) 12 % Monocytes % (Manual) 1 % Eosinophils % (Manual) 1 % Elliptocytes SLIGHT Urine Color YELLOW Urine Clarity CLEAR Urine pH 5 5-9 Urine Specific [place] 1.020 1.016-1.022 Urine Protein 2+ H NEGATIVE Urine Glucose (UA) 1+ H NEGATIVE Urine Ketones 2+ H NEGATIVE Urine Nitrite POSITIVE H NEGATIVE Urine Bilirubin NEGATIVE NEGATIVE Urine Urobilinogen NORMAL NORMAL MG/DL Urine Leukocyte Esterase 2+ H NEGATIVE Urine RBC (Auto) 5+ H NEGATIVE Urine RBC 2-5 H /HPF Urine WBC 10-25 H /HPF Urine Squamous Epithelial Cells 2-5 /HPF Urine Crystals NONE /LPF Urine Bacteria TRACE /HPF Urine Casts NONE /LPF Urine Mucus SMALL H /LPF Urine Culture Indicated YES Urine Test NEGATIVE NEGATIVE Sodium Level 136 135-145 MMOL/L Potassium Level 3.8 3.6-5.0 MMOL/L Chloride Level 100 98-107 MMOL/L Carbon Dioxide Level 22 21-32 MMOL/L Anion Gap 14 5-14 MMOL/L Blood Urea Nitrogen 14 7-18 MG/DL Creatinine 0.98 0.60-1.30 MG/DL Estimat Glomerular Filtration Rate > 60 BUN/Creatinine Ratio 14 Glucose Level 187 H 70-105 MG/DL Calcium Level 9.6 8.5-10.1 MG/DL Total Bilirubin 0.3 0.1-1.0 MG/DL Aspartate Amino Transf (AST/SGOT) 13 5-34 U/L Alanine Aminotransferase (ALT/SGPT) 20 0-55 U/L Alkaline Phosphatase 98 40-136 U/L Total Protein 8.0 6.4-8.2 GM/DL Albumin 4.0 3.2-4.5 GM/DL Urine Opiates Screen NEGATIVE NEGATIVE Urine Oxycodone Screen NEGATIVE NEGATIVE Urine Methadone Screen NEGATIVE NEGATIVE Urine Propoxyphene Screen NEGATIVE NEGATIVE Urine Barbiturates Screen NEGATIVE NEGATIVE Ur Tricyclic Antidepressants Screen NEGATIVE NEGATIVE Urine Phencyclidine Screen NEGATIVE NEGATIVE Urine Amphetamines Screen NEGATIVE NEGATIVE Urine Methamphetamines Screen NEGATIVE NEGATIVE Urine Benzodiazepines Screen NEGATIVE NEGATIVE Urine Cocaine Screen NEGATIVE NEGATIVE Urine Cannabinoids Screen NEGATIVE NEGATIVE My Orders Orders - SANCHEZ XAVIER DO Saline Lock/Iv-Start (11/28/16 12:13) Cbc With Automated Diff (11/28/16 12:13) Comprehensive Metabolic Panel (11/28/16 12:13) Drug Screen Stat (Urine) (11/28/16 12:13) Ua Culture If Indicated (11/28/16 12:13) Ct Pelvis W (11/28/16 12:13) Iohexol Injection (Omnipaque 350 Mg/Ml 1 (11/28/16 12:30) Ns (Ivpb) (Sodium Chloride 0.9% Ivpb Bag (11/28/16 12:30) Pharmacy Communication (Pharmacy Communi (11/28/16 12:17) Hcg,Qualitative Urine (11/28/16 12:25) Manual Differential (11/28/16 12:20) Urine Culture (11/28/16 12:20) Lidocaine 2% Injection 20 Ml (Xylocaine (11/28/16 13:45) Medications Given in ED Current Medications Medications Dose Ordered Sig/Zach Route Start Time Stop Time Status Last Admin Dose Admin Iohexol 100 ml ONCE ONCE IV 11/28/16 12:30 11/28/16 12:31 DC 11/28/16 12:59 100 ML Sodium Chloride 100 ml ONCE ONCE IV 11/28/16 12:30 11/28/16 12:31 DC 11/28/16 12:59 80 ML Vital Signs/I&O Vital Sign - Last 12Hours 11/28/16 11:12 Temp 98.9 Pulse 95 Resp 16 B/P (MAP) 158/82 Pulse Ox 99 O2 Delivery Room Air Blood Pressure Mean: 107 Departure Impression Impression: Primary Impression: Perirectal abscess Disposition: HOME, SELF-CARE Condition: Stable Departure-Patient Inst. Referrals: ABNER BENZ,LOCAL PHYSICIAN (PCP) Primary Care Physician Patient Instructions: Abscess Incision and Drainage (DC), Anal Abscess and Fistula (DC), CONTRAST ANTIDIABETIC MEDS Add. Discharge Instructions: TAKE MIRALAX DAILY TO AVOID CONSTIPATION, AT LEAST UNTIL AREA IS HEALED FOLLOW UP WITH DR. BENZ TOMORROW FOR FURTHER CARE All discharge instructions reviewed with patient and/or family. Voiced understanding. Scripts Naproxen (Naproxen) 500 Mg Tablet 500 MG PO BID, #20 TAB Prov: SANCHEZ XAVIER DO 11/28/16 Metronidazole (Flagyl) 500 Mg Tablet 500 MG PO QID for FOR INFECTION, #40 TAB Prov: SANCHEZ XAVIER DO 11/28/16 Sulfamethoxazole/Trimethoprim (Bactrim Ds Tablet) 1 Each Tablet 2 EACH PO BID, #40 TAB Prov: SANCHEZ XAVIER DO 11/28/16 SANCHEZ XAVIER DO Nov 28, 2016 14:40
[2016-11-28 14:49] VITALS: BP 158/82
--- NOTE | 2016-11-28 15:27 | Consultation ---
History of Present Illness History of Present Illness Patient Consulted On(nikko/time) 11/28/16 15:21 Date Seen by Provider: Nov 28, 2016 Time Seen by Provider: 14:33 History of Present Illness consult requested by Dr. Hull for perirectal abscess Patient is a 36-year-old female who's had multiple perirectal abscesses previously. She states that she has had one for approximately 5 years. Patient states that about 1 week ago she began having more pain in the left perirectal region. She states that it continued increase in size and causes more pain and discomfort. Patient states that she was hoping it would drain but it just would not drain on its own. She decided to come here for further evaluation. She is diabetic and she is unsure of where her blood sugars are. she states nothing really seems to make things better for this and hitting the area makes it seemed worse. She states that it does cause her difficulty to have a bowel movement. Patient denies any nausea vomiting fever sweats chills shortness of breath or chest pain. patient had a CT scan which I reviewed which has a left perirectal abscess. Allergies and Home Medications Allergies Coded Allergies: Amoxicillin (Verified Allergy, Mild, 07/23/11) Home Medications Alprazolam 1 Mg Tablet, 1 MG PO Q12H PRN, (Reported) Enalapril Maleate 5 Mg Tab, 5 MG PO DAILY, (Reported) Metronidazole 500 Mg Tablet, 500 MG PO QID, #40 Prescribed by: SANCHEZ HULL on 11/28/16 1440 Naproxen 500 Mg Tablet, 500 MG PO BID, #20 Prescribed by: SANCHEZ HULL on 11/28/16 1440 Omeprazole 20 Mg Tablet.dr, 20 MG PO DAILY PRN, (Reported) Sulfamethoxazole/Trimethoprim 1 Each Tablet, 2 EACH PO BID, #40 Prescribed by: SANCHEZ HULL on 11/28/16 1440 Past [id number]-[id number] Hx Patient Social History Alcohol Use: Denies Use Recreational Drug Use: No Smoking Status: Former Smoker Type Used: Cigarettes 2nd Hand Smoke Exposure: No Recent Foreign Travel: No Contact w/Someone Who Travel: No Recent Infectious Disease Expo: No Recent Hopitalizations: No Surgeries History of Surgeries: Yes (I & D OF RECTAL ABSCESSES--MULTIPLE, WISDOM TEETH REMOVED) Respiratory History of Respiratory Disorde: No Cardiovascular History of Cardiac Disorders: Yes Neurological History of Neurological Disord: No Reproductive System Hx Reproductive Disorders: No Female Reproductive Disorders: Menstrual Problems Gastrointestinal History of Gastrointestinal Di: Yes Gastrointestinal Disorders: Gastroesophageal Reflux Musculoskeletal History of Musculoskeletal Dis: No Endocrine History of Endocrine Disorders: Yes (gestational diabetes) Cancer History of Cancer: No Psychosocial History of Psychiatric Problem: Yes Behavioral Health Disorders: Anxiety Integumentary History of Skin or Integumenta: No (RECTAL/PERIRECTAL ABSCESSES) Blood Transfusions History of Blood Disorders: Yes Family Medical History Significant Family History: No Pertinent Family Hx Review of Systems-General Constitutional: see HPI EENTM: no symptoms reported Respiratory: no symptoms reported Cardiovascular: no symptoms reported Gastrointestinal: see HPI Genitourinary: no symptoms reported Musculoskeletal: no symptoms reported Skin: see HPI Psychiatric/Neurological: No Symptoms Reported Physical Exam-General Problems Physical Exam Vital Signs Vital Sign - Last 12Hours 11/28/16 11:12 Temp 98.9 Pulse 95 Resp 16 B/P (MAP) 158/82 Pulse Ox 99 O2 Delivery Room Air Capillary Refill : Less Than 3 Seconds General Appearance: no apparent distress HEENT: PERRL/EOMI, normal ENT inspection Neck: supple, normal inspection Respiratory: no respiratory distress, no accessory muscle use Cardiovascular: regular rate, rhythm Gastrointestinal: non tender, soft Rectal: tenderness (left perirectal abscess) Genital/Rectal: other (normal tone, palpable left perirectal abscess, multiple scars around perirectal area) Back: normal inspection Extremities: non-tender, normal inspection Neurologic/Psychiatric: alert, normal mood/affect, oriented x 3 Skin: warm/dry Data Review Labs Laboratory Tests 11/28/16 12:20: White Blood Count 17.6H, Red Blood Count 5.47, Hemoglobin 13.3, Hematocrit 41, Mean Corpuscular Volume 76L, Mean Corpuscular Hemoglobin 24L, Mean Corpuscular Hemoglobin Concent 32, Red Cell Distribution Width 18.1H, Platelet Count 257, Mean Platelet Volume 9.9, Neutrophils (%) (Auto) 86H, Lymphocytes (%) (Auto) 7L , Monocytes (%) (Auto) 7, Eosinophils (%) (Auto) 0, Basophils (%) (Auto) 0, Neutrophils # (Auto) 15.2H, Lymphocytes # (Auto) 1.2, Monocytes # (Auto) 1.2H, Eosinophils # (Auto) 0.0, Basophils # (Auto) 0.0, Neutrophils % (Manual) 86, Lymphocytes % (Manual) 12, Monocytes % (Manual) 1, Eosinophils % (Manual) 1, Elliptocytes SLIGHT, Urine Color YELLOW, Urine Clarity CLEAR, Urine pH 5, Urine Specific [place] 1.020, Urine Protein 2+H, Urine Glucose (UA) 1+H, Urine Ketones 2+H, Urine Nitrite POSITIVEH, Urine Bilirubin NEGATIVE, Urine Urobilinogen NORMAL, Urine Leukocyte Esterase 2+H, Urine RBC (Auto) 5+H, Urine RBC 2-5H, Urine WBC 10-25H, Urine Squamous Epithelial Cells 2-5, Urine Crystals NONE, Urine Bacteria TRACE, Urine Casts NONE, Urine Mucus SMALLH, Urine Culture Indicated YES, Urine Test NEGATIVE, Sodium Level 136, Potassium Level 3.8, Chloride Level 100, Carbon Dioxide Level 22, Anion Gap 14, Blood Urea Nitrogen 14, Creatinine 0.98, Estimat Glomerular Filtration Rate > 60, BUN/ Creatinine Ratio 14, Glucose Level 187H, Calcium Level 9.6, Total Bilirubin 0.3 , Aspartate Amino Transf (AST/SGOT) 13, Alanine Aminotransferase (ALT/SGPT) 20, Alkaline Phosphatase 98, Total Protein 8.0, Albumin 4.0, Urine Opiates Screen NEGATIVE, Urine Oxycodone Screen NEGATIVE, Urine Methadone Screen NEGATIVE, Urine Propoxyphene Screen NEGATIVE, Urine Barbiturates Screen NEGATIVE, Ur Tricyclic Antidepressants Screen NEGATIVE, Urine Phencyclidine Screen NEGATIVE, Urine Amphetamines Screen NEGATIVE, Urine Methamphetamines Screen NEGATIVE, Urine Benzodiazepines Screen NEGATIVE, Urine Cocaine Screen NEGATIVE, Urine Cannabinoids Screen NEGATIVE Assessment/Plan Assessment/Plan Assessment/Plan 36-year-old female with left perirectal abscess, diabetes Patient understands risk and benefits of incision and drainage of left perirectal abscess. She wishes to proceed. Patient afterwards be discharged home on antibiotics. She'll need daily dressing changes. Patient states that she'll see my office in the morning and then we'll try to arrange dressing changes in [place] where she's from either with her hospital or with her primary care provider. Procedure: consent was signed and on the chart. Patient was prepped and draped in a sterile fashion timeout was performed. 6 mL of 1 percent lidocaine was injected into the area of the left buttocks over the area of fluctuance. Once anesthetic effect placed a number 11 blade scalpel was used to make a skin incision. Hemostat was used to dissect down into the pocket which was then opened and purulent drainage came out. Culture was obtained. All loculations were broken up and the wound was irrigated with copious amounts of irrigation. The wound was then packed with quarter-inch iodoform gauze. Sterile bandage was applied. Patient tore procedure well thank you complications. ABNER BENZ DO Nov 28, 2016 15:27
== END 2016-11-28 14:49 | disposition home or self-care (01) ==
LOC: EDUNIT# 10:33 → ER 10:35
DX: K61.1 Rectal abscess (principal); K21.9 Gastro-esophageal reflux disease without esophagitis; F41.9 Anxiety disorder, unspecified; Z87.891 Personal history of nicotine dependence
CPT/HCPCS: 36415; 72193; 80053; 80306; 81000; 84703; 85007; 85027; 87070; 87077; 87088; 87186; 87205

== ENCOUNTER 2017-06-15 14:20 | Outpatient (CLI) | payer OTHER, MEDICAID ==
[~2017-06-15] VITALS: Ht 154.9 cm; Wt 82.6 kg
[~2017-06-15 14:20] MED LIST changes: +NAPR-915 PO; +SULF1TAB35 PO
[2017-06-15] MEDS ORDERED: TRAM50TA2 PO (14:21)
[2017-06-15] MEDS ORDERED: METF1000 PO (14:21)
[2017-06-15] MEDS ORDERED: METO100T12 PO (14:21)
[2017-06-15] MEDS ORDERED: GLIP5TAB13 PO (14:21)
[2017-06-15] MEDS ORDERED: BACL10TA PO (14:21)
[2017-06-15] MEDS ORDERED: OMEP20CA12 PO (14:21)
[2017-06-15] MEDS ORDERED: LISI10TA2 PO (14:21)
[2017-06-15] MEDS ORDERED: GABA-488 PO (14:26)
[2017-06-15] MEDS ORDERED: CHRM1TAB PO (14:26)
[2017-06-15] MEDS ORDERED: FERR325T18 PO (14:26)
[2017-06-15] MEDS ORDERED: HYDR-700 PO (14:26)
[2017-06-15] MEDS ORDERED: IBUP-1773 PO (14:26)
[2017-06-15] MEDS ORDERED: ESCI10TA55 PO (14:26)
== END 2017-06-15 14:28 ==
LOC: PREOP 14:20
PROVIDERS: ATTEND Surgery
DX: Z01.818 Encounter for other preprocedural examination (principal); K21.9 Gastro-esophageal reflux disease without esophagitis; R19.5 Other fecal abnormalities

== ENCOUNTER 2017-07-19 05:33 | Outpatient (CLI) | payer OTHER, MEDICAID ==
[~2017-07-19] VITALS: Ht 154.9 cm; Wt 82.6 kg
[~2017-07-19 05:33] MED LIST changes: +BACL10TA PO; +CHRM1TAB PO; +ESCI10TA55 PO; +FERR325T18 PO; +GABA-488 PO; +GLIP5TAB13 PO; +HYDR-700 PO; +IBUP-1773 PO; +LISI10TA2 PO; +METF10002 PO; +METO100T12 PO; +OMEP20CA12 PO; +TRAM50TA2 PO
== END 2017-07-19 15:13 ==
LOC: PREOP 05:33
PROVIDERS: ATTEND Surgery
DX: Z01.818 Encounter for other preprocedural examination (principal); K21.9 Gastro-esophageal reflux disease without esophagitis; R19.5 Other fecal abnormalities